=== PATIENT | male | born 1930 | race Caucasian/White ===

== ENCOUNTER 2017-05-02 09:59 | Emergency (ER) | payer OTHER ==
[~2017-05-02] VITALS: Ht 175.3 cm; Wt 93.1 kg
[~2017-05-02 09:59] MED LIST: ALDACTONE25 MG PO; ASPIR-LOW81 MG PO; ATORVASTATIN CA80 MG PO; B-121000 MC1 SL; B-121000 MC2 PO; BACTRIM,SEPT1 TABLET PO; CALCIUM 600 +1 EAC1 PO; CALTRATE 6001 TABLE1 PO; CARVEDILOL6.25 MG PO; COREG12.5 M1 PO; COUMADIN2 MG PO; ELIQUIS5 MG PO; FUROSEMIDE20 MG PO; KEFLEX500 MG PO; LISINOPRIL5 MG PO; LUPRON DEPOT45 MG IM; MEN'S MULTI-VI1 EACH PO; OS-CAL 500+D T1 EAC1 PO; PANTOPRAZOLE SO40 MG PO; PREDNISONE5 MG PO; PRESERVISIO1 CAPSULE PO; PRESERVISION A1 EAC2 PO; TERAZOSIN HCL5 MG PO; VERAPAMIL ER200 MG PO; VITAMIN D31000 UNIT PO; VITAMIN D32000 UNI1 PO; ZYTIGA250 MG PO; [UNRECOGNIZED DRUG - REMARK]
[2017-05-02 12:12] LABS: EOSINOPHIL (%) 0.9 % (0-5); EOSINOPHIL COUNT 0.1 K/uL (0-0.3); HEMATOCRIT 38.7 % (38.0-50.0); IMMATURE GRANULOCYTE (%) 0.4 % (0.0-0.7); IMMATURE GRANULOCYTE COUNT 0.1 K/uL; INSTRUMENT ABS NEUTROPHIL CT 9.2 K/uL; LYMPHOCYTE COUNT 1.9 K/uL (1.0-2.8); MCH 32.1 PG (29.0-34.0); MCHC 32.3 G/DL (30.0-36.0); MCV 99.5 FL (86-99); MEAN PLAT.VOLUME 10.1 uM^3 (9.0-12.4); MONOCYTE (%) 9.9 % (3-12); MONOCYTE COUNT 1.2 K/uL (0-0.8); NEUTROPHIL (%) 73.4 % (45-76); NEUTROPHIL COUNT 9.2 K/uL (1.8-6.4); PLATELET COUNT 184 K/uL (156-360); RBC DIS.WIDTH-CV 12.9 % (11.8-14.6); RBC DIS.WIDTH-SD 47.3 % (39-53); RED BLOOD COUNT 3.89 M/uL (4.00-5.50); WHITE BLOOD COUNT 12.5 K/uL (4.1-10.2)
[2017-05-02 12:23] LABS: CHLORIDE 107 mEq/L (99-109); POTASSIUM 3.6 mEq/L (3.7-5.4); SODIUM 142 mEq/L (136-147)
[2017-05-02 12:25] LABS: GLUCOSE 116 mg/dL (70-99)
[2017-05-02 12:26] LABS: ANION GAP 10 MEQ/L (2-14)
[2017-05-02 12:28] LABS: GFR ESTIMATE (CALCULATED) > 59 mL/min/
[2017-05-02 12:29] LABS: UREA NITROGEN (BUN) 11 mg/dL (9-23)
[2017-05-02] MEDS ORDERED: PERCOCET 10/1 TABLET PO (15:53)
[2017-05-02] MEDS ORDERED: VALTREX50 MG/ML PO (15:53)
[2017-05-02] MEDS ORDERED: LIDODERM 5% P1 PATCH TD (15:54)
[2017-05-02 16:16] VITALS: BP 169/84
== END 2017-05-02 16:23 | disposition home or self-care (01) ==
LOC: EME 09:59
PROVIDERS: Emergency Medicine
DX: M79.1 Myalgia (principal); B02.9 Zoster without complications; M54.2 Cervicalgia; R51 Headache; I10 Essential (primary) hypertension; Z79.01 Long term (current) use of anticoagulants; Z79.82 Long term (current) use of aspirin; Z79.52 Long term (current) use of systemic steroids; Z85.46 Personal history of malignant neoplasm of prostate
CPT/HCPCS: 80048; 85025; 93005; 99281; 99285; J0360; J2270; J3010; J7040

== ENCOUNTER 2017-12-18 02:29 | Inpatient (IN) | payer OTHER ==
[2017-12-18] VITALS (22 sets, daily range): BP systolic 71–140; BP diastolic 46–94
[~2017-12-18] VITALS: Ht 175.3 cm; Wt 97.4 kg
[~2017-12-18 02:29] MED LIST changes: -COREG12.5 M1 PO; +COREG6.25 M1 PO; +LIDODERM 5% P1 PATCH TD; +PERCOCET 10/1 TABLET PO; +VALTREX50 MG/ML PO
[2017-12-18 03:02] LABS: HEMOGLOBIN 14.1 G/DL (12.5-16.6); MCH 34.6 PG (29.0-34.0); MCHC 33.6 G/DL (30.0-36.0); MCV 103.2 FL (86-99); PLATELET COUNT 217 K/uL (156-360); RBC DIS.WIDTH-CV 12.6 % (11.8-14.6); RBC DIS.WIDTH-SD 47.8 % (39-53); RED BLOOD COUNT 4.07 M/uL (4.00-5.50)
[2017-12-18 03:12] LABS: CHLORIDE 106 mEq/L (99-109); POTASSIUM 4.8 mEq/L (3.7-5.4); SODIUM 140 mEq/L (136-147)
[2017-12-18 03:13] LABS: GLUCOSE 145 mg/dL (70-99)
[2017-12-18 03:17] LABS: CREATININE 0.9 mg/dL (0.6-1.3); GFR ESTIMATE (CALCULATED) > 59 mL/min/ (58.99-99999)
[2017-12-18 03:18] LABS: UREA NITROGEN (BUN) 18 mg/dL (9-23)
[2017-12-18 03:23] LABS: INTER. NORMALIZED RATIO 1.5
[2017-12-18 03:26] LABS: PTT 29.1 SEC (25-37)
[2017-12-18 03:40] LABS: TROP-I INTERPRETATION POSITIVE; TROPONIN-I 116.05 ng/mL (0.0-0.30)
[2017-12-18 13:15] LABS: TROP-I INTERPRETATION POSITIVE; TROPONIN-I 230.59 ng/mL (0.0-0.30)
[2017-12-18 19:06] LABS: TROP-I INTERPRETATION POSITIVE; TROPONIN-I 232.16 ng/mL (0.0-0.30)
[2017-12-19] VITALS (23 sets, daily range): BP systolic 64–174; BP diastolic 41–95
[2017-12-19 01:11] LABS: TROP-I INTERPRETATION POSITIVE
[2017-12-19 01:30] LABS: TROPONIN-I 165.96 ng/mL (0.0-0.30)
[2017-12-19 05:19] LABS: BASOPHIL (%) 0.3 % (0-1); EOSINOPHIL (%) 0.1 % (0-5); HEMOGLOBIN 12.2 G/DL (12.5-16.6); IMMATURE GRANULOCYTE (%) 0.4 % (0.0-0.7); LYMPHOCYTE (%) 11.2 % (15-42); LYMPHOCYTE COUNT 1.8 K/uL (1.0-2.8); MCH 32.8 PG (29.0-34.0); MCHC 31.3 G/DL (30.0-36.0); MCV 104.8 FL (86-99); MONOCYTE (%) 13.3 % (3-12); MONOCYTE COUNT 2.1 K/uL (0-0.8); NEUTROPHIL (%) 74.7 % (45-76); NEUTROPHIL COUNT 11.6 K/uL (1.8-6.4); PLATELET COUNT 176 K/uL (156-360); RBC DIS.WIDTH-CV 12.7 % (11.8-14.6); RBC DIS.WIDTH-SD 49.1 % (39-53); RED BLOOD COUNT 3.72 M/uL (4.00-5.50); WHITE BLOOD COUNT 15.6 K/uL (4.1-10.2)
[2017-12-19 05:43] LABS: CHLORIDE 104 MEQ/L (99-109); CREATININE 1.3 MG/DL (0.6-1.3); GFR ESTIMATE (CALCULATED) 56 mL/min/ (58.99-99999); POTASSIUM 5.1 MEQ/L (3.7-5.4); SODIUM 137 MEQ/L (136-147)
[2017-12-19 05:46] LABS: GLUCOSE 106 mg/dL (70-99); UREA NITROGEN (BUN) 28 mg/dL (9-23)
[2017-12-20 04:52] VITALS: BP 114/64
[2017-12-20 06:52] VITALS: BP 127/72
[2017-12-20 07:13] LABS: CHLORIDE 103 MEQ/L (99-109); CREATININE 1.1 MG/DL (0.6-1.3); GFR ESTIMATE (CALCULATED) > 59 mL/min/ (58.99-99999); GLUCOSE 125 mg/dL (70-99); POTASSIUM 4.9 MEQ/L (3.7-5.4); SODIUM 138 MEQ/L (136-147); UREA NITROGEN (BUN) 39 mg/dL (9-23)
[2017-12-20 11:08] VITALS: BP 98/57
[2017-12-20 20:12] VITALS: BP 136/67
[2017-12-21 08:06] VITALS: BP 123/76
[2017-12-21] MEDS ORDERED: MORPHINE CON20 MG/M1 PO (13:18)
[2017-12-21] MEDS ORDERED: HYOSCYAMINE0.125 M2 PO (13:18)
[2017-12-21] MEDS ORDERED: ATIVAN0.5 MG PO (13:18)
== END 2017-12-21 17:58 | disposition hospice, home (50) | DRG 251 ==
LOC: EME 02:29 → ENRESERV 03:26 → CATH 04:00 → EME 04:00 → ENRESERV 04:25 → 2SOUTH 05:15 → 4WEST 05:15 → ENRESERV 12-19 21:57 → 4WEST 12-19 22:03 → ENRESERV 12-19 22:15 → 5EAST 12-19 23:05 → ENPENDDIS 12-21 → 5EAST 12-21 17:58
PROVIDERS: Internal Medicine Cardiovascular Disease
DX: I21.09 ST elevation (STEMI) myocardial infarction involving other coronary artery of anterior wall (principal); I25.5 Ischemic cardiomyopathy; I11.0 Hypertensive heart disease with heart failure; J84.10 Pulmonary fibrosis, unspecified; J44.9 Chronic obstructive pulmonary disease, unspecified; I48.2 Chronic atrial fibrillation; I51.3 Intracardiac thrombosis, not elsewhere classified; I95.9 Hypotension, unspecified; R09.02 Hypoxemia; I47.2 Ventricular tachycardia; E78.5 Hyperlipidemia, unspecified; I50.9 Heart failure, unspecified; M54.9 Dorsalgia, unspecified; I25.10 Atherosclerotic heart disease of native coronary artery without angina pectoris; Z66 Do not resuscitate; Z51.5 Encounter for palliative care; Z79.01 Long term (current) use of anticoagulants; Z79.82 Long term (current) use of aspirin; Z79.899 Other long term (current) drug therapy; Z85.46 Personal history of malignant neoplasm of prostate
CPT/HCPCS: 71045; 80048; 84484; 85025; 85027; 85347; 85610; 85730; 87641; 93005; 93306; 94640; 94640 76; 94799; 99202; 99281; 99285; C1725; C1769; C1887; J0153; J1644; J2250; J2405; J3010; J7512